=== PATIENT | male | born 1955 | race Caucasian/White ===

== ENCOUNTER 2023-09-02 06:42 | Day surgery (SDC) | payer MEDICARE, SELFPAY ==
[2023-08-27 12:13] VITALS: BMI 33.2
--- NOTE | 2023-08-30 08:13 | MHC.SHP ---
Pre-Procedural Eval Section A Date of Service: 08/30/23 The patient is an INPATIENT: No Changes since office visit: No Cold of Flu in the past 2 weeks, No New Medical Problems, No Changes in Medication and No Patient answered all questions The History & Physical has been completed within 30 days and I have reviewed it.: Yes Section B Chief Complaint: Age-related nuclear cataract, left eye Allergies: Allergies Allergy/AdvReac Type Severity Reaction Status Date / Time adhesive Allergy Itching Verified 08/27/23 11:49 Plan Diagnosis/Plan: Unchanged I have reviewed the history and physical and performed a pertinent physical examination on my patient. No changes have occurred unless specified. Time Spent With Patient Time: Total time managing care of this patient today ____ minutes.
--- NOTE | 2023-08-30 08:54 | P.CONAN_ITS ---
Documented by User: Sari Hansen NP 08/30/23 08:54 HPI - Anesthesia Eval Consult details Narrative: 68yo M for Left Cataract Extraction IOL Insertion Medically cleared No previous cataract on record PMFSH Past Medical History Medical History Arthritis H/O radioactive iodine thyroid ablation Statin intolerance Obesity (BMI 35.0-39.9 without comorbidity) Depression Impaired fasting glucose Eczema Anal fistula Actinic keratosis Sleep apnea BPH (benign prostatic hyperplasia) HLD (hyperlipidemia) HTN (hypertension) History of trigeminal neuralgia Surgical History Surgical History Hx of prior ablation treatment Hx of total knee replacement S/P right knee arthroscopy H/O colonoscopy Social History Social History Are you a primary foster care social worker to a significant other at home: No Do you presently have visiting nurse or other home services: No Patient Tobacco Use Status: Never used Tobacco Use of substances other than those prescribed or required for medical reasons: No Have you been hit, kicked, punched, or otherwise hurt by someone within the past year? If so, by whom?: No Advance Directives: No Advance Directives Information Provided: Yes Advance Directives on File: No Recently lost weight without trying: No Eating poorly because of decreased appetite: No Nutrition Risks: No Nutritional Risk Meds Allergies Allergy/AdvReac Type Severity Reaction Status Date / Time adhesive Allergy Itching Verified 08/27/23 11:49 Home Medications Medication Instructions Recorded Confirmed Last Taken Type aspirin 81 mg chewable tablet 81 mg PO DAILY 08/27/23 08/27/23 09/02/23 06:15 History cholecalciferol (vitamin D3) 50 50 mcg PO DAILY 08/27/23 08/27/23 Unknown History mcg (2,000 unit) tablet (Vitamin D3) curcumin-phosphatidylcholine 500 1,000 mg PO DAILY 08/27/23 08/27/23 Unknown History mg capsule doxazosin 8 mg tablet 8 mg PO BEDTIME 08/27/23 08/27/23 Unknown History flaxseed oil 1,000 mg capsule 1,400 mg PO DAILY 08/27/23 08/27/23 Unknown History hydrochlorothiazide 12.5 mg tablet 12.5 mg PO DAILY 08/27/23 08/27/23 Unknown History lisinopril 40 mg tablet 40 mg PO BEDTIME 08/27/23 08/27/23 Unknown History multivitamin 1 tab PO DAILY 08/27/23 08/27/23 Unknown History sertraline 50 mg tablet (Zoloft) 50 mg PO DAILY 08/27/23 08/27/23 09/02/23 06:15 History Exam Height,Weight and Vital Signs: Height 6 ft Weight 111.13 kg Assessment and Plan Assessment Anesthesia Assessment: Chart Reviewed Documented by User: Tiarra Walker MD 09/02/23 08:16 PMFSH Active Problems Active Problems: NADEGE. Not used CPAP for years as more difficulty getting to sleep Increased BMI 33.2 Recent cold. Occassional cough Left rotator cuff problems. Some soreness of neck Past Medical History Medical History Arthritis H/O radioactive iodine thyroid ablation Statin intolerance Obesity (BMI 35.0-39.9 without comorbidity) Depression Impaired fasting glucose Eczema Anal fistula Actinic keratosis Sleep apnea BPH (benign prostatic hyperplasia) HLD (hyperlipidemia) HTN (hypertension) History of trigeminal neuralgia Family History Family history of problems with anesthesia: No Surgical History Surgical History Hx of prior ablation treatment Hx of total knee replacement S/P right knee arthroscopy H/O colonoscopy History of Problems with Anesthesia: No Social History Social History Are you a primary foster care social worker to a significant other at home: No Do you presently have visiting nurse or other home services: No Patient Tobacco Use Status: Never used Tobacco Use of substances other than those prescribed or required for medical reasons: No Have you been hit, kicked, punched, or otherwise hurt by someone within the past year? If so, by whom?: No Advance Directives: No Advance Directives Information Provided: Yes Advance Directives on File: No Recently lost weight without trying: No Eating poorly because of decreased appetite: No Nutrition Risks: No Nutritional Risk Meds Allergies Allergy/AdvReac Type Severity Reaction Status Date / Time adhesive Allergy Itching Verified 08/27/23 11:49 Home Medications Medication Instructions Recorded Confirmed Last Taken Type aspirin 81 mg chewable tablet 81 mg PO DAILY 08/27/23 08/27/23 09/02/23 06:15 History cholecalciferol (vitamin D3) 50 50 mcg PO DAILY 08/27/23 08/27/23 Unknown History mcg (2,000 unit) tablet (Vitamin D3) curcumin-phosphatidylcholine 500 1,000 mg PO DAILY 08/27/23 08/27/23 Unknown History mg capsule doxazosin 8 mg tablet 8 mg PO BEDTIME 08/27/23 08/27/23 Unknown History flaxseed oil 1,000 mg capsule 1,400 mg PO DAILY 08/27/23 08/27/23 Unknown History hydrochlorothiazide 12.5 mg tablet 12.5 mg PO DAILY 08/27/23 08/27/23 Unknown History lisinopril 40 mg tablet 40 mg PO BEDTIME 08/27/23 08/27/23 Unknown History multivitamin 1 tab PO DAILY 08/27/23 08/27/23 Unknown History sertraline 50 mg tablet (Zoloft) 50 mg PO DAILY 08/27/23 08/27/23 09/02/23 06:15 History Exam Height,Weight and Vital Signs: Height 6 ft Weight 111.13 kg Vital Signs Temp Pulse Resp BP Pulse Ox O2 Del Method 09/02/23 07:52 97.7 F 70 16 118/69 93 Room Air Airway Mallampati Class: III TM Dist: >3cm Neck ROM: Full Loose/Missing/Broken Teeth: No (Denies broken, loose teeth) Heart: RRR Lungs: CTAB Assessment and Plan Assessment Anesthesia Assessment: Anesthesia Plan Discussed Final Anesthetic Review Family History of Problems with Anesthesia: No History of Problems with Anesthesia: No NPO: Yes ASA Class: III Final Preanesthetic Review: No Changes in Pt Med Stat, Meds/Allgs Chart Reviewed, Consent Obtained/Reviewed and Anes Risks/Benef Reviewed Patient Risk: Intermediate Procedure Risk: Low Assessment/Block/Sedation in SS: Assess/Block/Sedation-SS Anesthetic Plan Anesthetic Plan: MAC: (Advised to let surgeon know if urge to cough) Disposition: Standard PACU
[2023-09-02 07:52] VITALS: BP 118/69; PULSE 70; RESP 16; TEMP 36.5; O2SAT 93
[2023-09-02] MEDS: Tetracaine HCl/PF 0.5% Oph Sol 4 ML DROPS 1 DROP EYE-LEFT (08:04)
[2023-09-02] MEDS: Cyclopentolate 1 % Ophth Sol 2 ML DRPBTL 1 DROP EYE-LEFT ×3 (08:05→08:16)
[2023-09-02] MEDS: Lactated Ringers 500 ML 50 ML IV (08:05)
[2023-09-02] MEDS: Tropicamide 1 % Ophth Sol 3 ML BTL 1 DROP EYE-LEFT ×3 (08:07→08:18)
[2023-09-02] MEDS: Ketorolac Tromethamine 0.5% Op 5 ML DROPS 1 DROP EYE-LEFT ×3 (08:09→08:19)
[2023-09-02] MEDS: Phenylephrine HCL 2.5% Oph SoL 2 ML BOTTLE 1 DROP EYE-LEFT ×3 (08:10→08:20)
--- NOTE | 2023-09-02 08:42 | P.PCNO_ITS ---
Ophthalmology Procedure Procedure Date of Service: 09/02/23 Ophthalmology Viscoelastic: Healon Duet Dual Pack Pro Ophthalmology Lenses: TECNIS [id number] (20) Procedure Notes: PREOPERATIVE DIAGNOSIS: Decreased visual acuity left eye secondary to cataract POSTOPERATIVE DIAGNOSIS: Same PROCEDURE: Left cataract extraction with multifocal intraocular lens insertion SURGEON: Jay Cruz M.D. ANESTHESIA: Topical/MAC ESTIMATED BLOOD LOSS: None COMPLICATIONS: None After obtaining informed consent, the patient was brought to the operation room suite and placed in the supine position. After adequate sedation per anesthesia, topical drops of Tetracaine were given to the left eye. The eye was then prepped and draped in the usual sterile fashion. The operating room microscope was then positioned over the operative eye and a lid speculum placed. A paracentesis was created. Viscoelastic was then instilled into the anterior chamber. A three plane incision was then created temporally, utilizing a 2.85 mm keratome. Capsulotomy forceps were then utilized to create a circular tear capsulotomy. Hydrodissection and hydrodelineation were carried out until adequate mobilization of the nucleus occurred. Phacoemulsification was then utilized to remove the dense central nucleus followed by removal of the cortical material utilizing the automated aspiration irrigation unit. Viscoelastic was instilled into the posterior capsular bag followed by placement of a multifocal posterior chamber intraocular lens without difficulty. The residual Viscoelastic was then removed utilizing the automated IA machine. The wound was check and found to be watertight. The patient tolerated t he procedure well and the lid speculum was removed. Intracameral injection of Vigamox 0.1 mL followed by a subtenon injection of Kenalog-40 0.2 mL were administered. The patient will be seen in the a.m.
[2023-09-02 09:15] VITALS: BP 126/75; PULSE 64; RESP 16; TEMP 36.3; O2SAT 98
== END 2023-09-02 09:27 | disposition home or self-care (01) ==
PROVIDERS: PCP Physician Assistant; Visit Provider Ophthalmology
PROC: (CPT 66985; principal; 2023-09-02 08:50)
DX: H25.12 Age-related nuclear cataract, left eye (principal); H52.4 Presbyopia; H18.413 Arcus senilis, bilateral; H43.393 Other vitreous opacities, bilateral; H11.153 Pinguecula, bilateral; G47.33 Obstructive sleep apnea (adult) (pediatric); I10 Essential (primary) hypertension; F32.A Depression, unspecified; N40.0 Benign prostatic hyperplasia without lower urinary tract symptoms; Z79.899 Other long term (current) drug therapy
CPT/HCPCS: 66984; J2250; J3010; J3301; V2788

== ENCOUNTER 2023-09-16 07:30 | Day surgery (SDC) | payer MEDICARE, SELFPAY ==
[2023-08-27 12:18] VITALS: BMI 33.2
--- NOTE | 2023-09-13 07:46 | MHC.SHP ---
Pre-Procedural Eval Section A Date of Service: 09/13/23 The patient is an INPATIENT: No Changes since office visit: No Cold of Flu in the past 2 weeks, No New Medical Problems, No Changes in Medication and No Patient answered all questions The History & Physical has been completed within 30 days and I have reviewed it.: Yes Section B Chief Complaint: Age-related nuclear cataract, right eye Allergies: Allergies Allergy/AdvReac Type Severity Reaction Status Date / Time adhesive Allergy Itching Verified 08/27/23 11:49 Plan Diagnosis/Plan: Unchanged I have reviewed the history and physical and performed a pertinent physical examination on my patient. No changes have occurred unless specified. Time Spent With Patient Time: Total time managing care of this patient today ____ minutes.
--- NOTE | 2023-09-13 09:44 | HO.ANESPROP2 ---
Documented by User: Sari Hansen NP 09/13/23 09:45 HPI - Anesthesia Eval Consult details Narrative: 68yo M for Right Cataract Extraction IOL Insertion Medically cleared s/p Left eye 09/02/2023: Fent 50, Midaz 1 PMFSH Past Medical History Medical History (Updated 09/16/23 @ 08:39 by Tiarra Walker MD) Arthritis H/O radioactive iodine thyroid ablation Statin intolerance Obesity (BMI 35.0-39.9 without comorbidity) Depression Impaired fasting glucose Eczema Anal fistula Actinic keratosis Sleep apnea BPH (benign prostatic hyperplasia) HLD (hyperlipidemia) HTN (hypertension) History of trigeminal neuralgia Family History Family history of problems with anesthesia: No Surgical History Surgical History Hx of prior ablation treatment Hx of total knee replacement S/P right knee arthroscopy H/O colonoscopy History of Problems with Anesthesia: No Social History Social History Are you a primary pediatric critical care nurse to a significant other at home: No Do you presently have visiting nurse or other home services: No Patient Tobacco Use Status: Never used Tobacco Use of substances other than those prescribed or required for medical reasons: No Have you been hit, kicked, punched, or otherwise hurt by someone within the past year? If so, by whom?: No Advance Directives: No Advance Directives Information Provided: Yes Advance Directives on File: No Recently lost weight without trying: No Eating poorly because of decreased appetite: No Nutrition Risks: No Nutritional Risk Poor oral hygiene: Yes (implant top left) Meds Allergies Allergy/AdvReac Type Severity Reaction Status Date / Time adhesive Allergy Itching Verified 08/27/23 11:49 Home Medications Medication Instructions Recorded Confirmed Last Taken Type aspirin 81 mg chewable tablet 81 mg PO DAILY 08/27/23 08/27/23 09/02/23 06:15 History cholecalciferol (vitamin D3) 50 50 mcg PO DAILY 08/27/23 08/27/23 Unknown History mcg (2,000 unit) tablet (Vitamin D3) curcumin-phosphatidylcholine 500 1,000 mg PO DAILY 08/27/23 08/27/23 Unknown History mg capsule doxazosin 8 mg tablet 8 mg PO BEDTIME 08/27/23 08/27/23 Unknown History flaxseed oil 1,000 mg capsule 1,400 mg PO DAILY 08/27/23 08/27/23 Unknown History hydrochlorothiazide 12.5 mg tablet 12.5 mg PO DAILY 08/27/23 08/27/23 Unknown History lisinopril 40 mg tablet 40 mg PO BEDTIME 08/27/23 08/27/23 Unknown History multivitamin 1 tab PO DAILY 08/27/23 08/27/23 Unknown History sertraline 50 mg tablet (Zoloft) 50 mg PO DAILY 08/27/23 08/27/23 09/02/23 06:15 History Exam Height,Weight and Vital Signs: Height 6 ft Weight 111.13 kg Assessment and Plan Assessment Anesthesia Assessment: Chart Reviewed Final Anesthetic Review Family History of Problems with Anesthesia: No History of Problems with Anesthesia: No Documented by User: Tiarra Walker MD 09/16/23 08:41 PMF Active Problems Active Problems: NADEGE. Does not use CPAP Increased BMI Past Medical History Medical History (Updated 09/16/23 @ 08:39 by Tiarra Walker MD) Arthritis H/O radioactive iodine thyroid ablation Statin intolerance Obesity (BMI 35.0-39.9 without comorbidity) Depression Impaired fasting glucose Eczema Anal fistula Actinic keratosis Sleep apnea BPH (benign prostatic hyperplasia) HLD (hyperlipidemia) HTN (hypertension) History of trigeminal neuralgia Surgical History Surgical History Hx of prior ablation treatment Hx of total knee replacement S/P right knee arthroscopy H/O colonoscopy Social History Social History Are you a primary pediatric critical care nurse to a significant other at home: No Do you presently have visiting nurse or other home services: No Patient Tobacco Use Status: Never used Tobacco Use of substances other than those prescribed or required for medical reasons: No Have you been hit, kicked, punched, or otherwise hurt by someone within the past year? If so, by whom?: No Advance Directives: No Advance Directives Information Provided: Yes Advance Directives on File: No Recently lost weight without trying: No Eating poorly because of decreased appetite: No Nutrition Risks: No Nutritional Risk Poor oral hygiene: Yes (implant top left) Meds Allergies Allergy/AdvReac Type Severity Reaction Status Date / Time adhesive Allergy Itching Verified 08/27/23 11:49 Home Medications Medication Instructions Recorded Confirmed Last Taken Type aspirin 81 mg chewable tablet 81 mg PO DAILY 08/27/23 08/27/23 09/02/23 06:15 History cholecalciferol (vitamin D3) 50 50 mcg PO DAILY 08/27/23 08/27/23 Unknown History mcg (2,000 unit) tablet (Vitamin D3) curcumin-phosphatidylcholine 500 1,000 mg PO DAILY 08/27/23 08/27/23 Unknown History mg capsule doxazosin 8 mg tablet 8 mg PO BEDTIME 08/27/23 08/27/23 Unknown History flaxseed oil 1,000 mg capsule 1,400 mg PO DAILY 08/27/23 08/27/23 Unknown History hydrochlorothiazide 12.5 mg tablet 12.5 mg PO DAILY 08/27/23 08/27/23 Unknown History lisinopril 40 mg tablet 40 mg PO BEDTIME 08/27/23 08/27/23 Unknown History multivitamin 1 tab PO DAILY 08/27/23 08/27/23 Unknown History sertraline 50 mg tablet (Zoloft) 50 mg PO DAILY 08/27/23 08/27/23 09/02/23 06:15 History Exam Height,Weight and Vital Signs: Height 6 ft Weight 111.13 kg Vital Signs Temp Pulse Resp BP Pulse Ox O2 Del Method 09/16/23 08:14 97.2 F 78 16 149/86 H 92 Room Air Airway Mallampati Class: III TM Dist: >3cm Neck ROM: Full Loose/Missing/Broken Teeth: No (Denies broken, loose, missing teeth) Heart: RRR Lungs: CTAB Assessment and Plan Assessment Anesthesia Assessment: Anesthesia Plan Discussed Final Anesthetic Review NPO: Yes ASA Class: III Final Preanesthetic Review: No Changes in Pt Med Stat, Meds/Allgs Chart Reviewed, Consent Obtained/Reviewed and Anes Risks/Benef Reviewed Patient Risk: Intermediate Procedure Risk: Low Assessment/Block/Sedation in SS: Assess/Block/Sedation-SS Anesthetic Plan Anesthetic Plan: MAC: Disposition: Standard PACU
[2023-09-16 08:14] VITALS: BP 149/86; PULSE 78; RESP 16; TEMP 36.2; O2SAT 92
[2023-09-16] MEDS: Lactated Ringers 500 ML 50 ML IV (08:18)
[2023-09-16] MEDS: Tropicamide 1 % Ophth Sol 3 ML BTL 1 DROP EYE-RIGHT ×3 (08:19→08:25)
[2023-09-16] MEDS: Cyclopentolate 1 % Ophth Sol 2 ML DRPBTL 1 DROP EYE-RIGHT ×3 (08:19→08:24)
[2023-09-16] MEDS: Ketorolac Tromethamine 0.5% Op 5 ML DROPS 1 DROP EYE-RIGHT ×3 (08:20→08:25)
[2023-09-16] MEDS: Phenylephrine HCL 2.5% Oph SoL 2 ML BOTTLE 1 DROP EYE-RIGHT ×3 (08:21→08:26)
--- NOTE | 2023-09-16 09:17 | HO.PNOPHT ---
Ophthalmology Procedure Procedure Date of Service: 09/16/23 Ophthalmology Viscoelastic: Healon Duet Dual Pack Pro Ophthalmology Lenses: TECNIS [id number] (20) Procedure Notes: PREOPERATIVE DIAGNOSIS: Decreased visual acuity right eye secondary to cataract POSTOPERATIVE DIAGNOSIS: Same PROCEDURE: Right cataract extraction with multifocal toric intraocular lens insertion SURGEON: Jay Cruz M.D. ANESTHESIA: Topical/MAC ESTIMATED BLOOD LOSS: None COMPLICATIONS: None After obtaining informed consent, the patient was brought to the operating room suite and placed in the supine position. After adequate sedation per anesthesia, topical drops of Tetracaine were given to the right eye. The eye was then prepped and draped in the usual sterile fashion. The operating room microscope was then positioned over the operative eye and a lid speculum placed. A paracentesis was created. Viscoelastic was then instilled into the anterior chamber. A three plane incision was then created temporally, utilizing a 2.85 mm keratome. Capsulotomy forceps were then utilized to create a circular tear capsulotomy. Hydrodissection and hydrodelineation were carried out until adequate mobilization of the nucleus occurred. Phacoemulsification was then utilized to remove the dense central nucleus followed by removal of the cortical material utilizing the automated aspiration irrigation unit. Viscoelastic was instilled into the posterior capsular bag followed by placement of a multifocal posterior chamber intraocular lens without difficulty. The residual Viscoelastic was then removed utilizing the automated IA machine. The wound was checked and found to be watertight. The patient tolerated the procedure well and the lid speculum was removed. Intracameral injection of Vigamox 0.1 mL followed by a subtenon injection of Kenalog-40 0.2 mL were administered. The patient will be seen in the a.m.
[2023-09-16 09:50] VITALS: BP 140/83; PULSE 72; RESP 18; TEMP 36.3; O2SAT 98
== END 2023-09-16 09:55 | disposition home or self-care (01) ==
PROVIDERS: PCP Physician Assistant; Visit Provider Ophthalmology
PROC: (CPT 66985; principal; 2023-09-16 09:40)
DX: H25.11 Age-related nuclear cataract, right eye (principal); H52.4 Presbyopia; H43.393 Other vitreous opacities, bilateral; H18.413 Arcus senilis, bilateral; H11.153 Pinguecula, bilateral; I10 Essential (primary) hypertension; G47.33 Obstructive sleep apnea (adult) (pediatric); N40.0 Benign prostatic hyperplasia without lower urinary tract symptoms; F32.A Depression, unspecified; Z79.899 Other long term (current) drug therapy
CPT/HCPCS: 66984; J2250; J3010; J3301; V2788